=== PATIENT | male | born 1980 | race Asian ===

== ENCOUNTER 2020-01-24 07:31 | Inpatient (IN) | payer OTHER ==
--- NOTE | 2020-01-23 23:00 | NUR ---
PT DENIES PAIN OR SOB AT THIS TIME, PT IS SEEN AMBULATING 50 FEET AND RETURNED TO BED.
[~2020-01-24] VITALS: Ht 167.6 cm; Wt 120.7 kg
[2020-01-24 07:34] VITALS: Ht 167.6 cm; Wt 120.7 kg
--- NOTE | 2020-01-24 07:45 | NUR ---
PT BIBA C CC: URINARY SYMPTOMS X1 WEEK AND LOWER ABD PAIN. PT IS A/O X4. RESP E/U. PT STATES HE STARTED CIPRO 1 DAY AGO WHEN HE WENT TO URGENT CARE AND DX UTI. PT HAS TEMP OF 103.2. COOLING MEASURES IMPLEMENTED AND DR. RATLIFF AT BEDSIDE FOR MSE. HE ORDERED TORADOL IV FOR TEMP AND STATES KEEP PT NPO. CALL LIGHT IN REACH.
[2020-01-24 08:57] LABS: BASOPHIL % 0.1 % (0-2); PLATELET COUNT 355 x10^3mcL (130-400); RED CELL DISTRIBUTION WIDTH 13.7 % (11.5-14.5)
[2020-01-24 08:58] LABS: UA SPECIFIC GRAVITY >=1.030 (1.005-1.035); microscopic required? YES; urine erythrocyte NEGATIVE (NEGATIVE)
[2020-01-24 09:02] LABS: CALCIUM 9.3 mg/dL (8.5-10.1); CARBON DIOXIDE 26.7 mmol/L (21-32); CHLORIDE SERUM 102 mmol/L (98-107); CREATININE SERUM 0.9 mg/dL (0.7-1.3); GFR1 > 60 mL/min; GLUCOSE SERUM 141 mg/dL (74-106); POTASSIUM SERUM 3.3 mmol/L (3.5-5.1); SODIUM SERUM 139 mmol/L (136-145)
[2020-01-24 09:05] LABS: ALKALINE PHOSPHATASE 101 U/L (46-116); ALT/SGPT 41 U/L (16-63); AST/SGOT 25 U/L (15-37); BILIRUBIN TOTAL 0.46 mg/dL (0.20-1.00); TOTAL PROTEIN, SERUM 7.2 g/dL (6.4-8.2)
[2020-01-24] MEDS ORDERED: AZOR 10-20 MG1 EACH PO (09:06)
[2020-01-24] MEDS ORDERED: TRIGLIDE160 M1 PO (09:07)
[2020-01-24] MEDS ORDERED: AMLODIPINE-OLM1 EAC1 PO (09:07)
[2020-01-24] MEDS ORDERED: TOPROL XL25 MG PO (09:08)
--- NOTE | 2020-01-24 09:08 | NUR ---
PT RESTING IN BED. TEMP HAS GONE DOWN TO 101.0. DR RATLIFF AT BEDSIDE TO INFORM HIM THAT HE WILL BE ADMITTED D/T PERFORATION.
--- NOTE | 2020-01-24 09:57 | NUR ---
GAVE REPORT TO [facility] AT [id number]
[2020-01-24 10:30] VITALS: BP 132/85
--- NOTE | 2020-01-24 10:30 | NUR ---
RECEIVED PT FROM ER VIA WC, ACCOMPANIED BY [employer]ER, DX DIVERTICULITIS, VERBAL, AXOX4, ABLE TO MAKE NEEDS KNOWN, CALM AND COOPERATIVE W/ POC AT THIS TIME, STANDARD PRECAUTION, PERRLA, NO FACIAL DROOP/SLURRED SPEECH, RESP E/U, NO SOB/COUGH, AFIBRIL, RA, 99%, MEDSURG, DENIED PAIN/DISCOMFORT, DENIED CP/PALPITATION, DENIED MELENDEZ/N/V/D, SEE ADMISSION ASSESSMENT, SEE SKIN ASSESSMENT, IV PATENT AND FLUSHED WELL, DRESSING CDI, SKIN C/D/W, PALP PULSES, CAP REFILL < 2S, AMBULATORY, CONTINENT, VOID X 1, PT ORIENTED TO UNIT, BED CONTROL BED ALARM, REMOTE, PHONE, QUESTIONS ASKED AND ANSWERED, NO FURTHER CONCERN NEEDED WHEN ASKED, CHARGE NURSE ALEXEY MADE AWARE, ALL NEEDS ADDRESED, SAFETY PROTOCOL FOLLOWED, CONTINUE TO MONITOR
[2020-01-24 11:08] LABS: CHOLESTEROL/HDL RATIO 3.4; MAGNESIUM 1.8 mg/dL (1.8-2.4)
--- NOTE | 2020-01-24 11:22 | NUR ---
PT SEEN BY SURGEON LANETTE BOTELLO AT THIS TIME, QUESTIONS ASKED AND ANSWERED BY DR BOTELLO, NO FURTHER CONCERN NEEDED WHEN ASKED, PT RESTING IN BED, IN NO APARERNT ACUTE DISTRESS, SAFETY PROTOCOL FOLLOWED, MRSA SWAB NARE DONE AND SENT TO LAB, CONTINUE TO MONITOR
--- NOTE | 2020-01-24 12:45 | NUR ---
PRN MED GIVEN PER MD ORDER FOR TEMP 102.1, TOLERATED WELL, COOLING METHOD APPLIED, TOLERATED WELL, REASSESSED PER PROTOCOL, NOTED 99.8, PT RESTING IN BED IN NO ACUTE DISTRESS, RESP E/U, LUNGS CTAB, IV PATENT AND INFUSING WELL, DRESSING CDI, ALL NEEDS ADDRESED, SAFETY PROTOCOL FOLLOWED, CONTINUE TO MONITOR
[2020-01-24 13:04] VITALS: BP 128/79
--- NOTE | 2020-01-24 15:20 | NUR ---
PT SEEN BY GI SPECIALIST DR FRIAS, NEW ORDER OBTAINED, PT MADE AWARE, NO FURTHER CONCERN NEEDED WHEN ASKED, ALL NEEDS ADDRESED, PT RESTIGN IN BED, IN N ACUTE DISTRESS, CONTINUE TO MONITOR
[2020-01-24 17:01] VITALS: BP 127/85
--- NOTE | 2020-01-24 17:28 | NUR ---
PT RESTING IN BED, IN NO ACUTE DISTRESS, AXOX4, VERBAL, ABLE TO MAKE NEEDS KNOWN, RESP E/U, RA, NO SOB/COUGH, MEDSURG, DENIED PAIN/DISCOMFORT, DENIED MELENDEZ/N/V/D, DENIED CP/PALPITATION, IV PATENT AND INFUSING WELL, DRESSING CDI, SKIN C/D/W, AFIBRIL, AMBUALTORY, CONTINENT, BRP, ALL NEEDS ADDRESED, SAFETY PROTOCOL FOLLOWED, CONTINUE TO MONITOR
--- NOTE | 2020-01-24 19:15 | NUR ---
RECIEVED PT RESTING IN BED WITH NO ACUTE DISTRESS NOTED AT THIS TIME, ASSESSMENT PERFORMED AT THIS TIME, PT IS A/OX4 NO COMPLAINTS OF MELENDEZ OR DIZZINESS AT THIS TIME, SPEAKS CLEAR, ABLE TO MAKE NEEDS KNOWN, PT DENIES CHEST PAIN OR PRESSURE AT THIS TIME, PERIPHERAL PULSES PALPABLE THROUGHOUT, NO EDEMA NOTED AT THIS TIME, LUNG SOUNDS CTA, NO SOB AT THIS TIME, RESPIRATIONS EVEN AND UNLABORED, ON RA, BOWEL SOUNDS ACTIVE, ABD LARGE, DISTENDED. PT IS NPO, PT VOIDS FREE OF BURNING OR IRRITATION, PT DENIES PAIN AT THIS TIME, ALL NEEDS ATTENDED TO AT THIS TIME, SAFETY PRECAUITONS IN PLACE, WILL CONTINUE TO MONITOR
[2020-01-24 21:12] VITALS: BP 122/72
--- NOTE | 2020-01-25 00:30 | NUR ---
PT DENIES PAIN OR SOB AT THIS TIME, RESTING IN BED WITH NO ACUTE DISTRESS NOTED AT THIS TIME, ALL PT NEEDS ATTENDED TO AT THIS TIME, SAFETY PRECAUTIONS IN PLACE, WILL CONITNUE TO MONITOR
[2020-01-25 04:50] VITALS: BP 123/77
--- NOTE | 2020-01-25 05:05 | NUR ---
PT RESTED COMFORTABLY THROUGH THE NIGHT WITH NO ACUTE DISTRESS NOTED THROUGH SHIFT, PT DENIES PAIN OR SOB AT THIS TIME, PT HAD LOW GRADE FEVER THAT WAS TREATED WTIH TYLENOL PO PER PRN ORDER, AND COOLING MEASURES REMAINED IN PLACE, THROUGH NIGHT, PT VSS THROUGH CARE, ALL PT NEEDS ATTENDED TO THROUGH SHIFT, WILL CONTINUE TO MONITOR AND ENDORSE CARE TO ONCOMING SHIFT
[2020-01-25 06:43] LABS: BASOPHIL % 0.2 % (0-2); PLATELET COUNT 317 x10^3mcL (130-400); RED CELL DISTRIBUTION WIDTH 13.7 % (11.5-14.5)
[2020-01-25 07:26] LABS: CALCIUM 8.7 mg/dL (8.5-10.1); CARBON DIOXIDE 25.2 mmol/L (21-32); CHLORIDE SERUM 103 mmol/L (98-107); GFR1 > 60 mL/min; GLUCOSE SERUM 122 mg/dL (74-106); POTASSIUM SERUM 3.1 mmol/L (3.5-5.1); SODIUM SERUM 137 mmol/L (136-145)
--- NOTE | 2020-01-25 07:32 | NUR ---
RECEIVED PATIENT FROM NIGHT NURSE, ALERT AND ORIENTED X4, ABLE TO VERBALZE NEEDS, NO C/O PAIN OR DISCOMFORT, LUNG SOUNDS CLEAR ON RA, O2 SAT 99%, NO SOB NOTED, ABLE TO AMBULATE INDEPENDENTLY, IV TO LAC INFUSING D5NS KCL 20MEQ @ 100ML/HR, NO C/O CHEST PAIN, BOWEL SOUNDS ACTIVE, LAST BM 5/4 LOOSE, SKIN INTACT, PEDAL PULSES STRONG AND EQUAL, NO EDEMA NOTED, CONTINENT OF BLADDER, PATIENT CALM AND COOPERATIV
[2020-01-25 07:47] VITALS: BP 124/78
--- NOTE | 2020-01-25 09:20 | NUR ---
PATIENT C/O 03/31 PAIN IN ABDOMEN, PRN NORCO ADMINISTERED PER ORDER IN EMAR, WILL CONTINUE TO MONITOR
--- NOTE | 2020-01-25 10:22 | NUR ---
REASSESED PATIENTS PAIN LEVEL, PATIENT NOW REPORTS 1/10 PAIN, NO FURTHER INTERVENTIONS NEEDED
--- NOTE | 2020-01-25 11:01 | NUR ---
PATIENT EXAMINED BY , ORDERS OBTAINED TO ADVANCE PATIENTS DIET TO CLEAR LIQUID
[2020-01-25 12:26] VITALS: BP 154/89
[2020-01-25 12:28] VITALS: BP 130/74
--- NOTE | 2020-01-25 13:00 | NUR ---
PATIENT WAS ABLE TO TOLERATE CHICKEN BROTH AND 240ML OF APPLE JUICE WITHOUT ANY C/O PAIN DISCOMFORT OR NAUSEA
--- NOTE | 2020-01-25 14:13 | NUR ---
PATIENTS TEMP 102, TYLENOL 650 PO ADMINISTERED, COOLING MEASURES INITIATED, WILL CONTINUE TO MONITOR
[2020-01-25 16:40] VITALS: BP 129/85
--- NOTE | 2020-01-25 17:30 | NUR ---
PATIENT C/O 03/31 ABDOMINAL PAIN, PO PRN NORCO ADMINISTERED PER EMAR, PATIENT ALSO CURRENTLY HAS TEMP OF 101.4, COLING MEASURES INITIATED, WILL CONTINUE TO MONITOR
--- NOTE | 2020-01-25 17:50 | NUR ---
TEMP CURRENTLY 100.4, PAIN NOW 10/01, WILL CONTINUE TO MONITOR
--- NOTE | 2020-01-25 18:59 | NUR ---
PATIENTS TEMP CURRENTLY 100.2, RESTING COMFORTABLY IN CHAIR, NO C/O PAIN OR DISCOMFORT, WILL ENDORSE CARE TO PM NURSE
--- NOTE | 2020-01-25 19:35 | NUR ---
RECEIVED REPORT FROM DAY SHIFT RN. PT SITTING ON THE CHAIR. AA&O X4. NO SOB NOTED ON ROOM AIR. DENIES CHEST PAIN. NO C/O N/V/ABD PAIN AT THIS TIME. IV TO LAC, PATENT AND INTACT. SAFETY MEASURES IN PLACE. INSTRUCTED PT TO USE THE CALL LIGHT IF ASSISTANCE IS NEEDED.
[2020-01-25 21:04] VITALS: BP 123/79
--- NOTE | 2020-01-25 23:50 | NUR ---
PT C/O 4/10 CRAMPING PAIN TO ABD. NORCO GIVEN.
--- NOTE | 2020-01-26 03:35 | NUR ---
PT RESTING WITH EYES CLOSED. BREATHING EVEN AND UNLABORED. NO FACIAL GRIMACING. CALL LIGHT WITHIN REACH. WILL CONTINUE TO MONITOR.
[2020-01-26 05:43] VITALS: BP 122/75
[2020-01-26 06:28] LABS: CALCIUM 8.9 mg/dL (8.5-10.1); CARBON DIOXIDE 23.8 mmol/L (21-32); CHLORIDE SERUM 103 mmol/L (98-107); CREATININE SERUM 0.9 mg/dL (0.7-1.3); GFR1 > 60 mL/min; GLUCOSE SERUM 107 mg/dL (74-106); POTASSIUM SERUM 3.7 mmol/L (3.5-5.1); SODIUM SERUM 139 mmol/L (136-145)
[2020-01-26 06:35] LABS: BASOPHIL % 0.2 % (0-2); PLATELET COUNT 376 x10^3mcL (130-400); RED CELL DISTRIBUTION WIDTH 13.8 % (11.5-14.5)
--- NOTE | 2020-01-26 07:00 | NUR ---
PT RESTED IN LONG INTERVALS DURING SHIFT. NO SOB ON ROOM AIR. NO C/O N/V/ABD PAIN AT THIS TIME. TYLENOL GIVEN FOR TEMP 100.5. COOLING MEASURES PROVIDED. SAFETY MEASURES MAINTAINED. ALL NEEDS ATTENDED TO. CALL LIGHT WITHIN REACH. WILL ENDORSE CONTINUITY OF CARE TO DAY SHIFT RN.
--- NOTE | 2020-01-26 07:30 | NUR ---
RECIEVED PT FROM PM NURSE. PT IN BED RESTING. PT A&OX4, DENIES PAIN AT THIS TIME. LUNG SOUNDS CTA TAVON ON ROOM AIR. PT CLAIMS TO HAVE HAD BM THIS AM. REPORTS LOOSE STOOL. PT AMBULATORY, CALL LIGHT IN REACH. PT ENCOURAGED TO CALL IF ASSISTANCE IS NEEDED.
--- NOTE | 2020-01-26 08:07 | NUR ---
RECEIVED PATIENT FROM DEMETRIS PLATA. PATIENT OBSERVED RETURNING FROM , STATES HE IS HAVING LOOSE STOOL. SPOKE WITH PLAN OF CARE WITH PATIENT INCLUDING ELEVATED WBCs, IV ANTIBIOTICS, AND ENCOURAGED AMBULATION. PATIENT HAS QUESTIONS ABOUT FEVER AND POSSIBLE INFECTION, WILL WAIT FOR DECK MOLDER PADMINI TO SPEAK WITH HIM. INFORMED DECK MOLDER PADMINI AT NURSES STATION OF CRITICAL LAB WBCs AND SHE ORDERED CONSULT W DR SHERIDAN. CALL LIGHT IN REACH AT THIS TIME.
--- NOTE | 2020-01-26 08:10 | NUR ---
ADMINISTERED MORNING MEDS TO PT. PAUSED KCL INFUSION TO RUN FLAGYL ANTIBIOTCS. PT REPORTS ABDOMINAL PAIN 01/29. NORCO ADMINISTERED, WILL FOLLOW UP. PT SITTING IN CHAIR BY BEDSIDE. CALL LIGHT IN REACH.
[2020-01-26 08:23] VITALS: BP 132/86
--- NOTE | 2020-01-26 10:00 | NUR ---
PT TAKEN TO CT VIA WHEELCHAIR. PT HAD NO QUESTIONS. PT SALINE LOCKED AND STABLE.
--- NOTE | 2020-01-26 10:20 | NUR ---
PT RETURNED FROM CT, PT CONNECTED TO IV FLUIDS. PT RESTING IN BED. CALL LIGHT IN REACH.
--- NOTE | 2020-01-26 11:35 | NUR ---
SPOKE TO DR BOTELLO, PT IS NOW NPO PENDING SURGERY. PRINTED EDUCATION PAMPHLETS FOR PT PRIOR TO PROCEDURE. WILL INFORM PT OF PROCEDURE AND ADDRESS QUESTIONS. PROCEDURAL CHECKLIST AND CONSENT FOR SURGERY PRINTED, WILL OBTAIN CONSENT FROM PT.
[2020-01-26 12:04] VITALS: BP 137/81
--- NOTE | 2020-01-26 12:04 | NUR ---
PT HAD CONCERN ABOUT THE PENDING SURGERY. PTS FAMILY WANTING TO SPEAK TO SURGEON. DR BOTELLO BROUGHT TO BEDSIDE, SPOKE TO PTS FAMILY ON THE PHONE. FAMILY EXPRESSING CONCERNS ABOUT HAVING THE SURGERY AT THIS FACILITY. UPON SPEAKING TO DR BOTELLO, FAMILY AND PT AGREE TO HAVE SURGERY DONE. PT HAS SIGNED THE CONSENT. PTS CONCERNS WERE ADDRESSED. EDUCATED PT ABOUT THE SURGERY AND ABOUT WHAT TO EXPECT AFTER. INFORMED PT ABOUT ACTIVITY, INCISION CARE, AND INCENTIVE SPIROMETRY POST SURGERY. PROVIDED PT CHG WIPES AND INFORMED PT ABOUT PRE PROCEDURE CLEANSING. PT HAS NO FURTHER CONCERNS AT THIS TIME. WILL REINFORCE TEACHING ONCE PT RETURNS.
--- NOTE | 2020-01-26 12:11 | NUR ---
PT TAKEN DOWN TO OR VIA BED. PT STABLE UPON TRANSFER.
--- NOTE | 2020-01-26 15:00 | NUR ---
PT STILL IN OR. PTS FAMILY CALLED TO ASK FOR UPDATE. INFORMED THEM THAT PT WAS STILL IN OR, AND I WILL CALL THEM WHEN HE IS BACK ON THE FLOOR.
--- NOTE | 2020-01-26 19:10 | NUR ---
RECEIVED PT LAYING IN BED WITH HOB ELEVATED. PT IS AAOX4. DENIES MELENDEZ. M/S PT. DENIES CHEST PAIN/CHEST PRESSURE. BREATHING IS EVEN AND UNLABORED ON 2LNC. LUNG SOUNDS CTA. DENIES SOB. ABD IS SOFT, DISTENDED. BS HYPOACTIVE. YOUSSEF IN PLACE DRAINING TO GRAVITY DARK YELLOW URINE. AMBULATORY WITH ASSIST. S/P EX LAP. CASEY AND ABD PAD IN PLACE, CDI. ABD BINDER IN PLACE. DENIES ANY PAIN OR ABD PAIN AT THIS TIME. IV TO LAC PATENT AND INTACT. NO ERYTHEMA NOTED. BED IN LOWEST POSITION. CALL LIGHT WITHIN REACH. WILL CONTINUE TO MONITOR.
[2020-01-26 19:40] VITALS: BP 122/81
--- NOTE | 2020-01-26 20:00 | NUR ---
PT C/O PAIN TO LAC. FLUSHED WITH 10 CC, FLUSHING SLOWLY AND PT C/O PAIN. DC'D. NEW IV TO RH PATENT AND INTACT. NO ERYTHEMA NOTED. PT REQUESTING TO HAVE YOUSSEF REMOVED, STATED IT WAS UNCOMFORTABLE AND HE COULD FEEL IT. URINE NOTED IN YOUSSEF BAG. NO KINKS PRESENT. STATED WILL MAKE DR AWARE. PT VERBALIZES UNDERSTANDING. WILL CONTINUE TO MONITOR.
--- NOTE | 2020-01-26 20:20 | NUR ---
ROUTINE MEDICATIONS ADMINSTERED AND TOLERATED WELL. NO ACUTE DISTRESS NOTED. BREATHING IS EVEN AND UNLABORED ON 2LNC. DENIES SOB. TYLENOL 650 MG ADMINSITERED AT THIS TIME FOR TEMP OF 100.5. COOL COMPRESSESS APPLIED. A/C ON. WILL REASSESS AND CHECK EFFECTIVENESS.
--- NOTE | 2020-01-26 22:22 | NUR ---
PT C/O YOUSSEF, ASKING IF IT CAN BE REMOVED. EDUCATED PT ON REASONS FOR YOUSSEF BEING PLACED. PT VERBALIZES UNDERSTANDING, STATES HE WANTS PAIN MEDICATION FOR IT. MORPHINE AND NORCO ONLY PRESENT FOR MAR, PT STILL DROWSY FROM PROCEDURE. WILL RECOMMEND TO DR IF TORADOL MAY BE ADMINISTERED.
--- NOTE | 2020-01-26 23:31 | NUR ---
ONE TIME DOSE OF TORADOL ADMINISTERED AT THIS TIME. PT C/O [address] EDUCATED PT OF DR NOT WANTING TO D/C CATHETER. PT VERBALIZES UNDERSTANDING. WILL REASSESS AND CHECK EFFECTIVENESS.
--- NOTE | 2020-01-27 01:35 | NUR ---
PT RESTING COMFORTABLY. BREATHING IS EVEN AND UNLABORED ON 2LNC. NO RESP DISTRESS NOTED. DENIES ANY PAIN AT THIS TIME. WILL CONTINUE TO MONITOR.
--- NOTE | 2020-01-27 04:18 | NUR ---
PT RESTING COMFORTABLY. BREATHING IS EVEN AND UNLABORED ON 2LNC. NO RESP DISTRESS NOTED. WILL CONTINUE TO MONITOR.
[2020-01-27 05:38] VITALS: BP 122/73
[2020-01-27 06:29] LABS: BASOPHIL % 0.1 % (0-2)
[2020-01-27 06:53] LABS: CALCIUM 8.4 mg/dL (8.5-10.1); CARBON DIOXIDE 25.1 mmol/L (21-32); CHLORIDE SERUM 105 mmol/L (98-107); CREATININE SERUM 0.6 mg/dL (0.7-1.3); GFR1 > 60 mL/min; GLUCOSE SERUM 146 mg/dL (74-106); POTASSIUM SERUM 3.8 mmol/L (3.5-5.1); SODIUM SERUM 139 mmol/L (136-145)
--- NOTE | 2020-01-27 06:55 | NUR ---
COMFORT AND SAFETY MEASURES MAINTAINED. ALL NEEDS ASSESSED AND ATTENDED TO. WILL CONTINUE TO MONITOR AND ENDORSE CARE TO DAY SHIFT NURSE.
[2020-01-27 07:06] LABS: PLATELET COUNT 436 x10^3mcL (130-400)
--- NOTE | 2020-01-27 07:28 | NUR ---
RECEIVED PATIENT FROM DEMETRIS HENLEY. PATIENT IN BED AT THIS TIME, COMPLAINING ABOUT PRODUCTIVE COUGH, AND YOUSSEF CATHETER DISCOMFORT. DEMETRIS HENLEY STATES SHE SPOKE WITH DR BOTELLO ABOUT YOUSSEF CATHETER REMOVAL BUT ONLY IF PATIENT IS MORE AWAKE AND ALERT. PATIENT IS MORE AWAKE AND ALERT AT THIS TIME AND WILL LIKELY REMOVED YOUSSEF TODAY. INCENTIVE SPIROMETER ALSO GIVEN TO PATIENT WHO IS FAMILIAR WITH DEVICE. WILL REINFORCE TEACHER ON IS USE TODAY. LAB CALLED WITH ELEVATED WBCs AT THIS TIME, WILL INFORM LINEN ROOM ATTENDANT PADMINI.
[2020-01-27 08:03] VITALS: BP 113/71
--- NOTE | 2020-01-27 08:12 | NUR ---
SPORTS ADMINISTRATOR PADMINI IN TO SEE PATIENT, AWARE OF INCREASED WBC COUNT. STATES PATIENT WILL NEED TO HAVE INFECTION IN CONTROL AND ENCOURAGED USE OF INCENTIVE SPIROMETER AND AMBULATION. PATIENT AGREES. DR BOTELLO ALSO IN, WILL WAIT FOR HER TO COME SEE PATIENT. CALL LIGHT IN REACH.
--- NOTE | 2020-01-27 08:54 | NUR ---
DR BOTELLO IN TO SEE PATIENT AND EVAL. ENCOURAGE USE OF AMBULATION AND IS USAGE. INSTRUCTED PATIENT ON IS USAGE AND STEPS, PATIENT VERBALIZES UNDERSTANDING AND WILL CONTINUE TO MONITOR. YOUSSEF CATHETER REMOVED AT THIS TIME, PATIENT TOLERATED. 250 ML RAJAT URINE NOTED.
[2020-01-27 12:47] VITALS: BP 106/73
--- NOTE | 2020-01-27 13:02 | NUR ---
PATIENT CONTINUES TO CRY AND STATES "HER HEART HURTS". ATTEMPTED TO CALM PATIENT DOWN WITH BREATHING TECHNIQUES AND DISTRACTION. PATIENT STATES SHE WANTS STAFF TO CALL [facility] AND PCP DR WALKER STATING THAT SHE "WANTS TO GO TO HOSPICE". EXPLAINED TO PATIENT THAT SHE IS STILL CLEARED MEDICALLY AND THAT THERE IS NO NEED TO GO TO HOSPICE AND THAT SHE WILL LIKELY NOT QUALIFY. PATIENT STATES "ITS ALL GOING DOWN HILL" AND IS SOBBING. [facility] DIALED AND NO ANSWER, VM LEFT. WILL WAIT FOR RETURN CALL.
--- NOTE | 2020-01-27 15:34 | NUR ---
Initial Nutrition Assessment: 207A KIKE CHOWDHURY 39M HR IA Dx: Diverticulitis, Pneumoperitoneum PMHx: HTN, Hyperlipidemia PSHx: none noted Labs: (01/26) Glu 146H, Cr 0.6L, Ca 8.4L, WBC 16.8H, H/H 11.6/35L Meds: Colace, D5-1/2NS/KCL IV, flagyl, Levaquin, Lipitor, Norvasc, toPROL PRN meds: morphine, Chazy, Tylenol, Zofran Diet: NPO d/t post-surgery PO intake since admission: Ht: 167.64cm/66in Wt: 120.656kg/265lbs BMI: 42.9 Bed scale: pt was not in bed IBW: 64.55kg/142lbs %IBW: 186.93% ABW: 79kg UBW: 215-218lbs per pt Age: 39 Food Allergies: NKFA Edema: none noted Last BM: 01/25 Skin: not intact, s/p ex lap with abhijit and abd pad, abd binder in place Harry: 22 Per H and P (), 39-year-old male with PMH HTN, Hyperlipidemia. Patient came in with c/o right lower quadrant pain for 1 week constant. He has had fevers as well along with loss of appetite. He has nausea vomiting only once after taking ibuprofen today. He feels constipated. He feels weak and dizzy. He went to urgent care yesterday but did not physically see him. They gave him ciprofloxacin. He denies any GI bleed symptoms, urinary symptoms, chest pain, shortness of breath, cough, sore throat, ill contacts or travel. Pt was admitted with dx: pneumoperitoneum with perforated viscus 2/2 diverticulitis/colitis, poss appendicitis, hypokalemia, h/o HTN, h/o hyperlipidemia, DVT RD Note (01/26): Per progress note (01/26), pt has raptured sigmoid diverticulitis s/p exploratory lap low anterior resection sigmoidoscopy w/ william drain, sepsis. Pt was sitting on chair during bedside visit. Per pt, he did not have any GI distress, but he was trying to pass gas. Pt also denied chewing/swallowing difficulties and recent wt changes. Pt stated that his usual body weight was approximately 215-218lbs but not sure how long ago. Pt was talking zinc and vitamin D supplements for COVID-19 prevention per his friend's recommendation. Problem with: N/V/D/C: None except pt is trying pass gas right now Problems with: Chewing: Swallowing: no per pt Current appetite: pt is currently NPO Recent wt change: no per pt %wt change: 23% wt gain per usual weight provided by pt Height: 5"6" Vitamin/Supplement use: Zinc and vitamin D Special diet at home: None per pt Physical activity: none per pt Nutrition education given (specify specific nutrition education and handout given): Encouraged pt to lower fiber intake during recovery d/t fiber is harder to digest and provides more volume to stool. Recommend pt to slowly introduce fiber into his diet. Additionally, encouraged pt to be mindful for his sodium intake and food items that are high in sodium d/t his h/o HTN. Written educations on fiber content of food and low sodium nutrition therapy were provided to pt, and pt acknowledged. Food-drug interactions? Education given? n/a Estimated Nutritional Needs Based on adjusted body weight (79kg) Energy: 2183-6118 kcal/day (20-22 kcal/kg for weight reduction) Protein: 79-94 g/day (1-1.2 g/kg for post-op) Fluid: 0414-3906 mL/day (25-30 mL/kg) Nutrition Diagnosis: 1. Altered GI function r/t pathophysiological cause a/e/b pt admitted with raptured diverticulitis s/p ex lap low anterior resection sigmoidoscopy and pt trying to pass gas. 2. Class III obesity r/t imbalance intake and output a/e/b pt BMI >40 (BMI = 42.9) and pt reported no physical activity. Intervention 1. Recommend continue NPO as necessary 2. Recommend clear liquid diet when pt is ready to receive nutrition. 3. Recommend full liquid diet then NA2G diet when it is appropriate to advance diet Monitor/Evaluate Goal: PO intake at least 75% of estimated needs Monitor: PO intake, Labs, GI function, Body weight F/U in 3-5 days as moderate risk 01/29-
[2020-01-27 16:48] VITALS: BP 124/81
--- NOTE | 2020-01-27 17:51 | NUR ---
PATIENT OBSERVED AMBULATING WITHOUT ASSISTANCE DOWN HALLWAY. DENIES PAIN. PATIENT ALSO STATES HE WAS ABLE TO HAVE SMALL BOWEL MOVEMENT TODAY. DRESSINGS INTACT AT THIS TIME AND DENIES STRAINING. WILL ENDORSE TO ONCOMING NURSE. CALL LIGHT IN REACH.
--- NOTE | 2020-01-27 19:10 | NUR ---
RECEIVED PT SITTING UP AT CHAIR. PT IS AAOX4. SPEECH IS CLEAR. DENIES MELENDEZ. M/S PT. DENIES CHEST PAIN/CHEST PRESSURE. BREATHING IS EVEN AND UNLABORED ON RA. NO RESP DISTRESS NOTED. INSTRUCTED PT TO USE IS, PT VERBALIZES UNDERSTANDING AND DEMONSTRATES USE. ABD IS SOFT AND DISTENDED. BS ACTIVE. SEPIDEH DRAIN TO RLQ DRAINING SEROSANGUINEOUS DRAINAGE. VOIDS FREELY. SURGICAL ABD INCISION WITH CASEY AND ABD PAD, CDI. ABD BINDER APPLIED. DENIES ANY PAIN OR ABD PAIN AT THIS TIME. IV TO RH PATENT AND INTACT. NO ERYTHEMA NOTED. BED IN LOWEST POSITION. CALL LIGHT WITHIN REACH. WILL CONTINUE TO MONITOR.
[2020-01-27 19:52] VITALS: BP 121/73
--- NOTE | 2020-01-27 20:30 | NUR ---
IV TO RH INFILTRATED. DC'D, CATHETER INTACT. IV TO RFA (20G) INSERTED. PATENT AND INTACT. NO ERYTHEMA NOTED. RUNNING FLAGYL AT 100 CC/HR.
--- NOTE | 2020-01-27 20:32 | NUR ---
ROUTINE MEDICATIONS ADMINISTERED. NO ACUTE DISTRESS NOTED. NORCO ADMINISTERED FOR 6/10 ABD PAIN. WILL REASSESS AND CHECK EFFECTIVENESS. BREATHING IS EVEN AND UNLABORED ON RA. NO RESP DISTRESS. WILL CONTINUE TO MONITOR.
--- NOTE | 2020-01-27 22:31 | NUR ---
PT SEEN AMBULATING UP AND DOWN THE HALLWAY. NO ACUTE DISTRESS NOTED.
--- NOTE | 2020-01-27 23:47 | NUR ---
PT C/O FEELING FEVERISH. ORAL TEMPERATURE TAKEN, 100.4. TYLENOL 650 MG ADMINISTERED AT THIS TIME. COOLING MEASURES APPLIED. WILL REASSESS AND CHECK EFFECTIVENESS. BREATHING IS EVEN AND UNLABORED ON RA. NO RESP DISTRESS. DENIES PAIN. WILL CONTINUE TO MONITOR
--- NOTE | 2020-01-28 01:47 | NUR ---
PT RESTING COMFORTABLY. BREATHING IS EVEN AND UNLABORED ON RA. NO RESP DISTRESS. WILL CONTINUE TO MONITOR.
--- NOTE | 2020-01-28 05:27 | NUR ---
PT RESTING COMFORTABLY. BREATHING IS EVEN AND UNLABORED ON RA. NO RESP DISTRESS. PT C/O 03/01 ABD PAIN. WILL MEDICATED ACCORDINGLY PER NOV ORDER. COMFORT AND SAFETY MEASURSES MAINTAINED. ALL NEEDS ASSESSED AND ATTENDED TO. WILL CONTINUE TO MONITOR AND ENDORSE CARE TO DAY SHIFT NURSE.
[2020-01-28 05:34] VITALS: BP 115/86
[2020-01-28 06:55] LABS: CALCIUM 8.2 mg/dL (8.5-10.1); CARBON DIOXIDE 24.7 mmol/L (21-32); CHLORIDE SERUM 105 mmol/L (98-107); CREATININE SERUM 0.9 mg/dL (0.7-1.3); GFR1 > 60 mL/min; GLUCOSE SERUM 91 mg/dL (74-106); POTASSIUM SERUM 3.3 mmol/L (3.5-5.1); SODIUM SERUM 142 mmol/L (136-145)
--- NOTE | 2020-01-28 07:10 | NUR ---
RECIEVED PT SITTING UP IN BED WITH NO C/O PAIN OR DISTRESS. A/OX4 WITYH NO MELENDEZ OR DIZZINESS. LUNGS CTAB, NO SOB NOTED. RLQ SEPIDEH DRAIN IN PLACE, NO DRAINIAGE AT THIS TIME. SURGICAL ABD INCISION WITH CASEY, ABD PAD, AND ABD BINDER IN PLACE, DRESSING CDI AND NO PAIN REPORTED. D5-1/2NS-[id number] RUNNING AT 100ML/HR IN RFA, CDI AND PATENT. SAFETY PRECAUTIONS IN PLACE, CALL LIGHT WITHIN REACH, WILL MONITOR.
[2020-01-28 08:25] VITALS: BP 135/92
--- NOTE | 2020-01-28 09:13 | NUR ---
NORCO GIVEN PER EMAR FOR C/O 5/10 ABD PAIN, WILL REASSESS.
[2020-01-28 09:29] LABS: PLATELET COUNT 475 x10^3mcL (130-400); RED CELL DISTRIBUTION WIDTH 14.1 % (11.5-14.5)
[2020-01-28 09:33] LABS: ATYPICAL LYMPH 1 %; BAND NEUTROPHIL 1 % (0-10); BASOPHIL 0 % (0-2); MONOCYTE 14 % (0-7); SEGMENTED NEUTROPHILS 62 % (37-75)
[2020-01-28 09:35] LABS: rbc morphology (normal/abnorm) ABNORMAL (NORMAL)
[2020-01-28 09:36] LABS: PLATELET MORPHOLOGY I
[2020-01-28 12:39] VITALS: BP 121/70
--- NOTE | 2020-01-28 15:52 | NUR ---
NORCO GIVEN PER EMAR FOR C/O 03/31 ABD PAIN, WILL REASSESS.
[2020-01-28 16:42] VITALS: BP 127/87
--- NOTE | 2020-01-28 18:10 | NUR ---
PT RESTING IN BED WITH NO C/O PAIN OR DISTRESS. A/OX4 WITH NO MELENDEZ OR DIZZINESS. LUNGS CTAB, NO SOB NOTED. RLQ SEPIDEH DRAIN IN PLACE, 20ML OF DARK YELLOW DRAINAGE FROM ALL SHIFT. SURGICAL ABD INCISION WITH CASEY, ABD PAD, AND ABD BINDER IN PLACE, DRESSING CDI AND NO PAIN REPORTED. RFA IV CDI AND PATENT. SAFETY PRECAUTIONS IN PLACE, CALL LIGHT WITHIN REACH, WILL ENDORSE TO NIGHT NURSE.
--- NOTE | 2020-01-28 19:30 | NUR ---
RECEIVED REPORT FROM DAY SHIFT RN. PT SITTING ON THE CHAIR. AA&O X4. BREATHING EVEN AND UNLABORED. NO C/O CHEST PAIN. NO C/O N/V/ABD PAIN AT THIS TIME. ABD SURGICAL INCISION COVERED WITH ABD PAD, C/D/I. ABD BINDER IN PLACE. SEPIDEH DRAIN TO RLQ, NO DRAINAGE. IV TO RFA, PATENT AND INTACT. SAFETY MEASURES IN PLACE. INSTRUCTED PT TO USE THE CALL LIGHT FOR ASSISTANCE. CALL LIGHT WITHIN REACH.
[2020-01-28 20:05] VITALS: BP 126/86
--- NOTE | 2020-01-28 23:32 | NUR ---
PT C/O ABD PAIN. MEDICATED WITH NORCO.
--- NOTE | 2020-01-29 01:00 | NUR ---
PT RESTING WITH EYES CLOSED. NO FACIAL GRIMACING. NO DISTRESS NOTED. CALL LIGHT WITHIN REACH. WILL CONTINUE TO MONITOR.
[2020-01-29 06:05] VITALS: BP 126/89
--- NOTE | 2020-01-29 06:30 | NUR ---
PT WATCHING TV AT THIS TIME. NO SOB ON ROOM AIR. PT DENIES PAIN. PT STATES PAIN MEDICATION EFFECTIVE. NO C/O N/V. NO DISTRESS NOTED. SAFETY MEASURES MAINTAINED. CALL LIGHT WITHIN REACH. WILL ENDORSE CONTINUITY OF CARE TO DAY SHIFT RN.
--- NOTE | 2020-01-29 07:00 | NUR ---
RECIEVED PT SITTING UP IN BED WITH NO C/O PAIN OR DISTRESS. A/OX4 WITH NO MELENDEZ OR DIZZINESS. LUNGS CTAB, NO SOB NOTED. RLQ SEPIDEH DRAIN IN PLACE, NO DRAINIAGE AT THIS TIME. SURGICAL ABD INCISION WITH CASEY, ABD PAD, AND ABD BINDER IN PLACE, DRESSING CDI AND NO PAIN REPORTED. RFA IV CDI AND PATENT. SAFETY PRECAUTIONS IN PLACE, CALL LIGHT WITHIN REACH, WILL MONITOR.
[2020-01-29 07:01] LABS: CALCIUM 8.2 mg/dL (8.5-10.1); CHLORIDE SERUM 104 mmol/L (98-107); CREATININE SERUM 0.8 mg/dL (0.7-1.3); GFR1 > 60 mL/min; GLUCOSE SERUM 96 mg/dL (74-106); POTASSIUM SERUM 3.6 mmol/L (3.5-5.1); SODIUM SERUM 140 mmol/L (136-145)
[2020-01-29 08:07] LABS: RED CELL DISTRIBUTION WIDTH 14.2 % (11.5-14.5)
[2020-01-29 08:13] LABS: PLATELET COUNT 516 x10^3mcL (130-400)
[2020-01-29 08:27] VITALS: BP 126/93
--- NOTE | 2020-01-29 08:32 | NUR ---
TYLEMOL GIVEN PER EMAR FOR C/O 11/29 ABD PAIN, WILL REASSESS.
--- NOTE | 2020-01-29 08:55 | NUR ---
DR FRIAS MADE AWARE OF WBC COUNT OF 15.5, NO NEW ORDERS AT THIS TIME.
[2020-01-29 09:06] LABS: MONOCYTE 34 % (0-7); SEGMENTED NEUTROPHILS 59 % (37-75)
[2020-01-29 09:07] LABS: PLATELET MORPHOLOGY PLATELETS INCREASED; rbc morphology (normal/abnorm) ABNORMAL (NORMAL)
[2020-01-29 13:03] VITALS: BP 138/87
--- NOTE | 2020-01-29 13:54 | NUR ---
TYLENOL GIVEN FOR C/O 4/10 ABD PAIN, WILL REASSESS.
[2020-01-29 17:11] VITALS: BP 123/84
--- NOTE | 2020-01-29 17:50 | NUR ---
DR ILEANA VAZQEUZ AST BEDSIDE WITH PT DISCUSSING POC AND ASSESSING INCISION SITE. SITE CLEAR OF S/S OF INFECTION PER DR VAZQUEZ. DRESSING CHANGED AND CDI.
--- NOTE | 2020-01-29 18:30 | NUR ---
PT RESTING IN BED WITH NO C/O PAIN OR DISTRESS. A/OX4 WITH NO MELENDEZ OR DIZZINESS. LUNGS CTAB, NO SOB NOTED. RLQ SEPIDEH DRAIN IN PLACE, 10ML YELLOW DRAINAGE ALL SHIFT. SURGICAL ABD INCISION WITH CASEY, ABD PAD, AND ABD BINDER IN PLACE, DRESSING CHANGED TODAY AND CDI. NO PAIN REPORTED. RFA IV CDI AND PATENT. SAFETY PRECAUTIONS IN PLACE, CALL LIGHT WITHIN REACH, WILL ENDORSE CARE TO NIGHT NURSE.
--- NOTE | 2020-01-29 19:40 | NUR ---
RECIEVED PT FROM DAYSHIFT NURSE. PT IS A/OX4, DENIES HEADACHES/DIZZINESS/NAUSEA. PT IS MED SURG PT, DENIES CHEST PAIN, HR 87. PT HAS BILATERAL EQUAL PULSES, NO EDEMA NOTED, SCDS IN PLACE. CTA, ON RA, SPO2 99%. PT HAS ACTIVE BOWEL MOVEMENTS, IS ABLE TO AMBULATE TO RESTROOM WITHOUT ASSISTANCE. PT DESCRIBES LAST BM HAS SMALL AND HARD WITH SOME BLOOD TINGED. SEPIDEH IN PLACE, NO DRAIANGE FOR NOC SHIFT YET. PT HAS GENERALIZED WEAKNESS, BUT IS NOW ABLE TO AMBULATE SELF WITOHOUT ASSISTANCE. PT HAD ABDOMINAL SURGICAL INCISION IN PLACE. INCISION HAS CASEY/ABDOMINAL PAD AND ABOMDINAL BINDER WITH SEPIDEH DRAIN. SITE IS CDI. PT HAD ABDOMINAL PAIN PER DAYSHIFT, WILL CONTINUE TO MONITOR AND PROVIDE PT WITH COMFORT CARE AND MEDICATIONS PRN NEEDED FOR PAIN. IV IS ON RFA, 2O GAUGE. PT IS CALM AND COOPERATIVE. ALL COMFORT CARE ACCOUNTED FOR. BED IN LOWEST POSITION, CALL LIGHT WITHIN REACH. WILL CONTINUE TO MONITOR.
[2020-01-29 20:40] VITALS: BP 125/83
--- NOTE | 2020-01-29 22:02 | NUR ---
PT C/O ABD CRAMPING PAIN 11/01. TYLENOL GIVEN.
--- NOTE | 2020-01-30 01:45 | NUR ---
OBSERVED PT RESTING IN BED WITH EYES CLOSED COMFORTABLY. NO S/S OF CONTINUING ABDOMINAL PAIN AT THE MOMENT. WILL CONTINUE TO MONITOR PT'S PROGRESS. BED IN LOWEST POSITION, CALL LIGHT WTHIN REACH.
[2020-01-30 05:28] VITALS: BP 128/88
--- NOTE | 2020-01-30 05:58 | NUR ---
PT RESTED ON AND OFF THROUGHOUT THE NIGHT WITH EYES CLOSED. PT CONTINUES TO BE A/OX4, MED SURG PT. PT DENIES CHEST PAIN OR SOB. PULSES ARE BILATERALLY EQUAL, SCDS IN PLACE. PT IS CTA, ON RA. PT DID NOT HAVE AN ACTIVE BOWEL MOVEMENT THROUGHT NOC. PT CONTINUES TO HAVE GENERALIZED WEAKNESS, BUT IS ABLE TO AMBULATE SELF TO RR. PT HAS ABDOMINAL SURGICAL INCISION WITH CASEY/ABDOMINAL PAD IN PLACE WITH ABDOMINAL BINDER. SEPIDEH DRAIN HAD SEROUS DRAINAGE OF 10ML. PT WAS GIVEN TYLENOL PRN FOR ABDOMINAL PAIN. PT'S IV REMAINS IN RFA, 20G. IV SITE IS PATENT/NO REDNESS/NO DRAINAGE. PT IS CALM AND COOPERATIVE. ALL COMFORT CARE ACCOUNTED FOR, BED IN LOWEST POSITION, CALL LIGHT WITHIN REACH. WILL CONTINUE TO MONITOR.
[2020-01-30 06:51] LABS: CALCIUM 8.6 mg/dL (8.5-10.1); CARBON DIOXIDE 28.9 mmol/L (21-32); CHLORIDE SERUM 102 mmol/L (98-107); CREATININE SERUM 0.7 mg/dL (0.7-1.3); GFR1 > 60 mL/min; GLUCOSE SERUM 99 mg/dL (74-106); POTASSIUM SERUM 3.6 mmol/L (3.5-5.1); SODIUM SERUM 139 mmol/L (136-145)
--- NOTE | 2020-01-30 07:05 | NUR ---
RECIEVED PT RESTING IN BED WITH NO C/O PAIN OR DISTRESS. A/OX4 WITH NO MELENDEZ OR DIZZINESS. LUNGS CTAB, NO SOB NOTED. RLQ SEPIDEH DRAIN IN PLACE, NO DRAINAGE AT THIS TIME. SURGICAL ABD INCISION WITH CASEY, ABD PAD, AND ABD BINDER IN PLACE, DRESSING CHANGED YESTERDAY AND CDI. RFA IV CDI AND PATENT. SAFETY PRECAUTIONS IN PLACE, CALL LIGHT WITHIN REACH, WILL MONITOR. .
--- NOTE | 2020-01-30 07:21 | NUR ---
ENDORSED PT CARE TO DAYSHIFT NURSE, PT IN BED RESTING WITH EYES CLOSED. ALL QUESTIONS AND CONCERNS ADDRESSED.
[2020-01-30 08:18] LABS: PLATELET COUNT 654 x10^3mcL (130-400)
--- NOTE | 2020-01-30 08:33 | NUR ---
TYLENOL GIVEN FOR C/O 4/10 ABD PAIN, WILL REASSESS. CORY ELECTRONIC GLUING MACHINE OPERATOR MADE AWARE OF WBC LEVEL OF 16.7, WILL CARRY OUT ANY NEW ORDERS.
[2020-01-30 09:16] VITALS: BP 123/82
--- NOTE | 2020-01-30 09:58 | NUR ---
DR BOTELLO AT BEDSIDE ASSESSING INCISION SITE AND DISCUSSING POC WITH PT, PT VERBALIZES UNDERSTANDING.
[2020-01-30 11:00] LABS: BAND NEUTROPHIL 0 % (0-10); BASOPHIL 0 % (0-2); MONOCYTE 15 % (0-7); SEGMENTED NEUTROPHILS 76 % (37-75)
[2020-01-30 11:01] LABS: PLATELET MORPHOLOGY PLATELETS INCREASED; rbc morphology (normal/abnorm) ABNORMAL (NORMAL)
[2020-01-30 16:22] VITALS: BP 119/84
--- NOTE | 2020-01-30 18:09 | NUR ---
PT RESTING IN BED WITH NO C/O PAIN OR DISTRESS. A/OX4 WITH NO MELENDEZ OR DIZZINESS. LUNGS CTAB, NO SOB NOTED. RLQ SEPIDEH DRAIN IN PLACE, 10ML YELLOW DRAINAGE ALL SHIFT. SURGICAL ABD INCISION WITH CASEY, ABD PAD, AND ABD BINDER IN PLACE, SITE CDI AND NO PAIN REPORTED. RFA IV CDI AND PATENT. SAFETY PRECAUTIONS IN PLACE, CALL LIGHT WITHIN REACH, WILL ENDORSE CARE TO NIGHT NURSE.
[2020-01-30 20:32] VITALS: BP 125/75
--- NOTE | 2020-01-31 01:28 | NUR ---
RECIEVED PT FROM DAYSHIFT NURSE. PT IS A/OX4. PT IS MED SURG PATIENT, DENIES CHEST PAIN AT THE TIME, HR 98. PT HAS EQUAL BILATERAL PULSES, NO EDEMA NOTED, SCDS IN PLACE. PT IS CTA, ON RA, SPO2 96%, DENIES SOB. PT HAS ACTIVE BOWEL SOUNDS, LAST BOWEL MOVEMENT DURING DAYSHIFT ON 01/29 DESCRIBED SMALL, SOFT BROWN. ABDOMINAL IS SOFT AND DISTENDED, SEPIDEH SITE CDI. PT COMPLAINS OF GENERALIZED WEAKNESS, IS ABLE TO AMBULATE TO RESTROOM AND REPOSITION SELF IN BED. ABDOMINAL SURGICAL INCISION IS WITH CASEY, ABDOMINAL PAD, AND ABDOMINAL BINDER, DRESSING IS CDI. PT DENIES ABDOMINAL PAIN AT THIS TIME. IV IS RFA 2OG, IV SITE IS PATENT, NO REDNESS/SWELLING NOTED. PT IS CALM AND COOPERATIVE. ALL COMFORT CARE IS ACCOUNTED FOR. BED IN LOWEST POSITION, CALL LIGHT WITHIN REACH, WILL CONTINUE TO MONITOR.
--- NOTE | 2020-01-31 01:50 | NUR ---
STARTED NEW IV ON PATIENT, THOMPSON 22G. REMOVED PREVIOUS IV. NEW IV SITE IS PATENT, NO REDNESS OR SWELLING NOTED. BED IN LOWEST POSITION, CALL LIGHT WITHIN REACH. WILL CONTINUE TO MONITOR.
--- NOTE | 2020-01-31 02:05 | NUR ---
PT COMPLAINED OF MILD ABDOMINAL PAIN, REQUESTED PAIN MEDICATON. WILL MEDICATE PATIENT WITH TYLENOL PRN. EDUCATED PT ON POTENTIAL SIDE EFFECTS OF MEDICATION, PT VERBALIZED UNDERSTANDING. BED IN LOWEST POSITION, CALL LIGHT WITHIN REACH. WILL CONTINUE TO MONITOR.
[2020-01-31 05:20] VITALS: BP 115/80
--- NOTE | 2020-01-31 06:49 | NUR ---
PT RESTED ON AND OFF THROUGHOUT THE NIGHT WITH EYES CLOSED. PT REMAINS IN FULL LIQUID DIET AND A/OX4. PT DENIES ANY CHEST PAIN/SOB. THROUGHOUT THE NIGHT SEPIDEH DRAINAGE WAS 15ML SEROUS DRAINAGE. PT COMPLAINED ONE NIGHT OF ABDOMINAL PAIN AND WAS GIVEN TYLENOL FOR MILD PAIN. PT STATED THAT TYLENOL ALLEVIATED PAIN. PT ALSO REMOVED ABDOMINAL DRESSING IN THE RESTROOM WHILE CHANGING, CALLED NURSING STATION AND I WAS ABLE TO CHANGE THE DRESSING. DRESSING IS CDI. ABDOMINAL BINDING IN PLACE. PT HAS A NEW IV IN THE RFA 22G, IV SITE IS PATENT. NO SWELLING OR REDNESS NOTED. ALL COMFORT CARE HAS BEEN ADDRESSED AND PROVIDED FOR THROUGHOUT THE SHIFT. WILL ENDORSE CARE TO DAYSHIFT NURSE.
[2020-01-31 07:19] LABS: CALCIUM 8.7 mg/dL (8.5-10.1); CARBON DIOXIDE 28.5 mmol/L (21-32); CHLORIDE SERUM 103 mmol/L (98-107); CREATININE SERUM 0.9 mg/dL (0.7-1.3); GFR1 > 60 mL/min; GLUCOSE SERUM 96 mg/dL (74-106); POTASSIUM SERUM 3.5 mmol/L (3.5-5.1); SODIUM SERUM 139 mmol/L (136-145)
--- NOTE | 2020-01-31 07:30 | NUR ---
PT IS AAOX4. MED SURG PT. LUNG SOUNDS CTA. ON R/A. NO COUGH OR SOB. PT HAS ABDOMINAL INCISION CLOSED WITH SUTURES AND CASEY, COVERED WITH CDI DRESSING AND ABDOMINAL BINDER. IV CATH TO RFA FLUSHED AND PATENT. SITE WNL. COVERED WITH CDI OCCLUSIVE DRESSING. PT DENIES PAIN AT THIS TIME. CALL LIGHT WITHIN REACH.
[2020-01-31 09:06] VITALS: BP 118/79
[2020-01-31 09:52] LABS: RED CELL DISTRIBUTION WIDTH 14.1 % (11.5-14.5)
[2020-01-31 09:53] LABS: PLATELET COUNT 630 x10^3mcL (130-400)
--- NOTE | 2020-01-31 10:12 | NUR ---
IV CATH TO RFA FELL OUT INTACT. SITE WNL. COVERED WITH CDI DRESSING. NEW IV CATH 20G PLACED ON FIRST ATTEMPT. SITE WNL. COVERED WITH CDI OCCLUSIVE DRESSING. PT TOLERATED PROCEDURE WELL. BED IN LOWEST POSITION. CALL LIGHT WITHIN REACH.
--- NOTE | 2020-01-31 10:12 | NUR ---
PADMINI ROLON NP COMPLETED PT'S DISABILITY PAPERS AND RETURNED THEM TO THE PT AT THIS TIME.
--- NOTE | 2020-01-31 10:29 | NUR ---
DR. BOTELLO MET WITH PT. PT HAS SMALL POCKET OF INFECTION, CT WITH CONTRAST ORDERED TO EVALUATE. PT MAY NEED SMALL DRAIN PLACED TO THE AREA TO DRAIN INFECTION. DR. BOTELLO WILL ASSESS CT RESULTS TODAY.
--- NOTE | 2020-01-31 10:32 | NUR ---
SPOKE WITH ALEIDA IN RADIALOGY AND REPORTED THAT DR. BOTELLO WOULD LIKE THE CT WITH CONTRAST HELD UNTIL SHE TALKED TO THE RADIOLOGIST. ALEIDA STATED SHE WILL LET THE TECH KNOW.
[2020-01-31 13:00] LABS: BAND NEUTROPHIL 17 % (0-10); BASOPHIL 0 % (0-2); METAMYELOCTE 6 % (0-2); MONOCYTE 9 % (0-7); MYELOCYTE 2 % (0-2); SEGMENTED NEUTROPHILS 50 % (37-75)
[2020-01-31 13:02] LABS: rbc morphology (normal/abnorm) ABNORMAL (NORMAL); tear drop cell (dacryocyte) 1+
--- NOTE | 2020-01-31 13:40 | NUR ---
PT RECEIVING U/S GUIDED ABCESS DRAIN AT THIS TIME.
[2020-01-31 14:06] VITALS: BP 129/87
--- NOTE | 2020-01-31 14:06 | NUR ---
U/S GUIDED ABCESS DRAIN TO LLQ COMPLETED. AREA COVERED WITH CDI BANDAID. 10CC SEROUS FLUID REMOVED AND TAKEN TO LAB FOR CULTURE. PT TOLERATED PROCEDURE WELL WITH NO C/O PAIN. VS; 97.8, 89, 16, 129/82 (97) , 97% ON R/A. BED IN LOWEST POSITION. CALL LIGHT WITHIN REACH. WILL CONTINUE TO MONITOR.
--- NOTE | 2020-01-31 15:04 | NUR ---
FLAGYL IV INTIATED. WOUND CARE PREFORMED. ABOMINAL DRESSING FALLING OFF. REMOVED DRESSING, RINSED AREAN WITH N/S. PATTED DRY. COVERED WITH DRAIN SPONGE AND 2 ABDOMINAL PADS SECURED WITH SILK TAPE. PT TOLERATED PROCEDURE WELL. CALL LIGHT WITHIN REACH. BED IN LOWEST POSITION.
[2020-01-31 15:57] VITALS: BP 142/98
--- NOTE | 2020-01-31 18:35 | NUR ---
PT IS SITTING UP AT BEDSIDE, RESP EVEN AND UNLABORED. NO DISTRESS NOTED. ABDOMINAL BINDER IN PLACE. IV CATH TO LFA 20G INTACT, SITE WNL. COVERED WITH CDI DRESSING. PT DENIES PAIN AND DISCOMFORT. CALL LIGHT WITHIN REACH. BED IN LOWEST POSITION.
--- NOTE | 2020-01-31 19:30 | NUR ---
RECEIVED PT FROM DAY SHIFT RN. PATIENT AAOX4, DENIES MELENDEZ/DIZZINESS. BREATHING EVEN AND UNLABORED ON RA WITH NO SOB NOTED. MED SURG PATIENT, DENIES CHEST PAIN/PRESSURE. ABD SOFT/ROUND/DIST, ACTIVE BOWEL SOUNDS. ABD INCISION COVERED WITH DRESSING, CDI. SEPIDEH DRAIN X1. ABD BINDER IN PLACE. PATIENT AMBULATORY WITH BRP. IV LFA PATENT, SL. NO ACUTE DISTRESS NOTED. CALL BUTTON WITHIN REACH. SAFETY PRECAUTIONS IN PLACE. WILL CONTINUE TO MONITOR.
[2020-01-31 20:17] VITALS: BP 132/84
--- NOTE | 2020-02-01 02:00 | NUR ---
PATIENT RESTING, BREATHING EVEN AND UNLABORED ON RA WITH NO SOB NOTED. SAFETY PRECAUTIONS IN PLACE. WILL CONTINUE TO MONITOR.
--- NOTE | 2020-02-01 05:18 | NUR ---
PATIENT SLEPT MOST OF THE NIGHT WITH NO ACUTE DISTRESS NOTED. BREATHING EVEN AND UNLABORED ON RA WITH NO SOB NOTED. ABD DRESSING CDI. SEPIDEH DRAIN IN PLACE WITH PURULENT COLOR OUTPUT. DENIES PAIN. PT AMBULATORY. PT CONTINUE TO REPORT HAVING DIARRHEA X2 DURING THE NIGHT. IV PATENT, SL. MEDICATED PER EMAR. CALL BUTTON WITHIN REACH. SAFETY PRECAUTIONS IN PLACE. WILL CONTINUE TO MONITOR AND ENDORSE CARE TO DAY SHIFT RN.
[2020-02-01 05:21] VITALS: BP 119/86
[2020-02-01 06:40] LABS: CALCIUM 9.5 mg/dL (8.5-10.1); CHLORIDE SERUM 102 mmol/L (98-107); CREATININE SERUM 0.8 mg/dL (0.7-1.3); GFR1 > 60 mL/min; GLUCOSE SERUM 95 mg/dL (74-106); POTASSIUM SERUM 3.6 mmol/L (3.5-5.1); SODIUM SERUM 141 mmol/L (136-145)
--- NOTE | 2020-02-01 07:15 | NUR ---
PATIENT IN NO SIGNS OF DISTRESS. ENDORSED CARE TO DAY SHIFT RN, ALL QUESTIONS ADDRESSED.
[2020-02-01 07:25] LABS: RED CELL DISTRIBUTION WIDTH 14.4 % (11.5-14.5)
--- NOTE | 2020-02-01 07:38 | NUR ---
RECIEVED REPORT FROM [facility] NURSE. PATIENT CURRENTLY AWAKE ALERT AND ORIENTED. IV TO THE LEFT FOREARM CURRENTLY SALINE LOCKED. POST OP ABD INCISION CURRENTLY COVERED WITH DRESSING AND ABD BINDER. PATIENT REPORTS DIARRHEA. WILL HOLD ALL STOOL SOFTENERS AT THIS TIME. PATIENT REMAINS ON A FULL LIQUID DIET AND IS TOLERATING WELL. PATIENT IS CURRENTLY ABMULATORY AND TAKES REGULAR WALKS AROUND THE HALLWAY. CALL LIGHT WITHIN REACH. WILL CONTINUE TO PROVIDE CARE FOR PATIENT.
[2020-02-01 08:01] VITALS: BP 126/85
[2020-02-01 12:07] VITALS: BP 131/88
[2020-02-01 12:07] LABS: BAND NEUTROPHIL 13 % (0-10); MONOCYTE 7 % (0-7); SEGMENTED NEUTROPHILS 59 % (37-75)
[2020-02-01 12:08] LABS: METAMYELOCTE 2 % (0-2); MYELOCYTE 3 % (0-2)
[2020-02-01 12:09] LABS: rbc morphology (normal/abnorm) ABNORMAL (NORMAL)
[2020-02-01 12:11] LABS: PLATELET MORPHOLOGY GIANT PLATELET SEEN
[2020-02-01 12:16] LABS: PLATELET COUNT 693 x10^3mcL (130-400)
[2020-02-01 12:42] VITALS: BP 132/84
--- NOTE | 2020-02-01 15:03 | NUR ---
Follow-up Nutrition Assessment: 207A KIKE CHOWDHURY 39M HR FU Dx: Diverticulitis, Pneumoperitoneum PMHx: HTN, Hyperlipidemia Labs: (01/31) WBC 14.9H Meds: Colace, Flagyl, Levaquin, Lipitor, Norvasc PRN meds: [place], Tylenol, Zofran Diet: Mechanical Soft diet PO Intake: 40-75% x 5 meals with average PO intake of 53% (clear liquid and full liquid) Weights: (01/31)120.656kg *no significant change Edema: none noted Last BM: 01/30 Skin: not intact, incision to ABD Harry: [address] (01/26), pt had raptured sigmoid diverticulitis s/p exploratory lap low anterior resection sigmoidoscopy w/ william drain, sepsis. Pt was sitting on chair during bedside visit. Per pt, he did not have any GI distress, but he was trying to pass gas. Pt also denied chewing/swallowing difficulties and recent wt changes. Pt stated that his usual body weight was approximately 215-218lbs but not sure how long ago. Pt was talking zinc and vitamin D supplements for COVID-19 prevention per his friend's recommendation. RD Note (01/31): Per RN reassessment (01/30), pt reported having diarrhea during the day, and pt denied N/V/abd pain. Per progress note (01/31), pt had CT guided abscess drainage yesterday and sent to micro for culture. Pt was sitting on his chair on his computer during bedside visit. Per pt, he had fair appetite and it could be better. Pt reported that he had been drinking ensure, but he's looking forward to eating something solid. RD informed pt that pt's diet had been advanced to mechanical soft diet starting at lunch time. Pt reported diarrhea, but it could be caused by fluid diet. Reviewed low residue diet with pt, and pt acknowledged. Estimated Nutritional Needs Based on adjusted body weight (79kg) Energy: 6807-4342 kcal/day (20-22 kcal/kg for weight reduction) Protein: 79-94 g/day (1-1.2 g/kg for post-op) Fluid: 1020-3324 mL/day (25-30 mL/kg) Nutrition Diagnosis: (ongoing) 1. Altered GI function r/t pathophysiological cause a/e/b pt admitted with raptured diverticulitis s/p ex lap low anterior resection sigmoidoscopy and pt trying to pass gas. (ongoing) 2. Class III obesity r/t imbalance intake and output a/e/b pt BMI >40 (BMI = 42.9) and pt reported no physical activity. Intervention: 1. Recommend continue mechanical soft diet as tolerate Monitor/Evaluate: Goal: Have pt meet at least 75% of estimated needs (not met, ongoing) Monitor: PO intake, Labs, GI function, Body weight F/U in 3-5 days as moderate risk 02/03-
--- NOTE | 2020-02-01 15:03 | NUR ---
1. Recommend continue mechanical soft diet as tolerate
--- NOTE | 2020-02-01 15:52 | NUR ---
SPOKE WITH NURSE PRACTIONER REGARDING PATIENT'S ELEVATION IN PLATELETS. NO CHANGE IN ORDERS AT THIS TIME. PATIENT IS WALKING POST OP. WILL CONTINUE TO MONITOR PLT COUNT.
[2020-02-01 16:21] VITALS: BP 11/73
--- NOTE | 2020-02-01 17:52 | NUR ---
PATIENT CURRENTLY AWAKE ALERT AND ORIENTED. PATIENT'S DIET ADVANCED TODAY TO MECHANICAL SOFT. PATIENT IS HAVING SOME DIFFICULTY TOLERATING ADVANCEMENT IN DIET HE REPORTS MILD ABD PAIN. PATIENT WAS TREATED WITH ACETAMINOPHEN FOR PAIN PER EMAR AND AT PATIENT'S REQUST. PATIENT HAD ABD DRESSING CHANGE TODAY AND NEW PICTURES TAKEN OF SURGICAL INCISION SITE AND PLACED IN CHART. PATIENT CONTINUES TO REMAIN ON IV ANTIBIOTICS: FLAGYL AND LEVAQUIN. PATIENT RESOLUTION OF HIS DIARRHEA. CONTINUE WITH CURRENT TREATMENT PLAN. WILL ENDORSE ALL FURTHER CARE TO THE NOC NURSE.
--- NOTE | 2020-02-01 18:21 | NUR ---
13cc DRAINED FROM SEPIDEH DRAIN. DRAINAGE YELLOW IN COLOR.
[2020-02-01 19:59] VITALS: BP 118/77
--- NOTE | 2020-02-01 20:02 | NUR ---
PATIENT RECEIVED IN BED AWAKE,ALERT AND ORIENTED X4, SPEECH CLEAR. BREATHING EVEN AND UNLABORED BS CLEAR DIMINISHED BASES FOUND ON ROOM AIR SAT 97%,DENIED SON NO COUGH. DENIED CHEST PAINS, NON TELE PATIENT, HR=92BPM. 01/26/20 S/P EXP. LAP SIGMOIDECTOMY W/ SEPIDEH, DRESSING CDI,ABDOMINAL BINDER IN USE, PATIENT PASSING GAS AND DID HAVE LOOSE BRONW BM TODAY, STARTED ON [facility] SOFT DIET AND PATIENT STILL HAVE POOR APPETITE, DENIED N/V THIS TIME. ABDOMEN TENDER TO TOUCH, CASEY TO INCISION INTACT. SEPIDEH INTACT, BULB COMPRESSED FOR SUCTION. VOIDING FREELY. PATIENT AMBULATING INSIDE AND OUTSIDE ROOM. PATIENT EDUCATED PAIN MANAGEMENT. ALL QUESTIONS AND CONCERNS ADDRESSED. SAFETY PRECAUTIONS OBSERVED AND MAINTAINED. WILL CONTINUE TO MONITOR.
--- NOTE | 2020-02-01 20:45 | NUR ---
SCHEDULED MEDS ADMINISTERED,PATIENT INFORMED ABOUT EACH MEDS ACTIONS AND PURPOSE PRIOR. PATIENT ALSO COMPLAINT OF ABDOMINAL SURGICAL INCISIONAL PAIN RATED AT 7/10 THROBBING, MEDICATED PRN. WILL MONITOR EFFECTIVENESS.
--- NOTE | 2020-02-01 21:45 | NUR ---
CHECKED PATIENT SLEEPING EASILY AWAKEN WHEN NAME CALLED, RE-ASSESSED EFFECTIVENESS OF PAIN MEDS STATED DESIRED RELIEF AT 3/10.
--- NOTE | 2020-02-02 | NUR ---
PATIENT RESTING COMFORTABLY THIS TIME, AWAKEN WHEN NAME CALLED.SAFETY PRECAUTIONS MAINTAINED. WILL CONTINUE TO MONITOR..
[2020-02-02 05:27] VITALS: BP 124/80
--- NOTE | 2020-02-02 06:29 | NUR ---
PATIENT HAD A RESTFUL , COMFORTABLE QUIET NIGHT, WAS MEDICATED X1 WITH NORCO AND RECEIVED DESIRED PAIN GOAL. DRESSING TO ABDOMEN CDI. SEPIDEH TO RQUAD DRAINED YELLOW FLUID WITH BLOOD TINGED. AMBULATORY WITH STEADY GAIT. SAFETY PRECAUTIONS MAINTAINED. WILL ENDORSE CONTINUITY OF CARE TO INCOMING NURSE.
[2020-02-02 06:38] LABS: CALCIUM 8.9 mg/dL (8.5-10.1); CARBON DIOXIDE 29.3 mmol/L (21-32); CHLORIDE SERUM 103 mmol/L (98-107); CREATININE SERUM 0.8 mg/dL (0.7-1.3); GFR1 > 60 mL/min; GLUCOSE SERUM 94 mg/dL (74-106); POTASSIUM SERUM 3.8 mmol/L (3.5-5.1); SODIUM SERUM 140 mmol/L (136-145)
--- NOTE | 2020-02-02 07:10 | NUR ---
RECEIVED PT FROM MIGUEL ANGEL WILLSON. PT AWAKE AOX4. PT ON RA. NO SOB OR DISTRESS. DENIES CHEST PAIN. IV LFA. HEP LOCKED. DRESSING CDI. PT DENIES PAIN AT THIS TIME. ALL SAFETY AND COMFORT MEASURES IN PLACE. BED IN LOW POSITION, 2 SIDE RAILS UP, CALL LIGHT WITH IN REACH. ALL QUESTIONS AND CONCERNS ADRESSED. WILL CONTINUE TO MONITOR PT.
--- NOTE | 2020-02-02 07:37 | NUR ---
BEDSIDE HANDS OFF REPORT AND INTRODUCTION PERFORMED WITH INCOMING NURSE TITUS-RN.
[2020-02-02 08:14] VITALS: BP 134/87
[2020-02-02 08:45] LABS: PLATELET COUNT 736 x10^3mcL (130-400); RED CELL DISTRIBUTION WIDTH 14.6 % (11.5-14.5)
[2020-02-02] MEDS ORDERED: FLA500 PO (10:06)
[2020-02-02] MEDS ORDERED: LEVAQUIN750 MG PO (10:06)
[2020-02-02] MEDS ORDERED: LIPI20 PO (10:07)
[2020-02-02] MEDS ORDERED: NOR5 PO (10:07)
[2020-02-02] MEDS ORDERED: METOPROLOL SUCC25 M2 PO (10:07)
[2020-02-02] MEDS ORDERED: ACETAMINOPHEN-H1 TA1 PO (10:08)
--- NOTE | 2020-02-02 12:00 | NUR ---
RECEIVED CALL FROM DR BOTELLO. DR BOTELLO STATED TO CHANGE ABD SURGICAL INCISION DRESSING WITH 4X4 GUAZE AND TAPE. ALL QUESTIONS AND CONCERNS ADDRESSED. ALL NEEDS MET AT THIS TIME. WILL CONTINUE TO MONITOR PT.
[2020-02-02 12:10] LABS: ATYPICAL LYMPH 1 %; BAND NEUTROPHIL 0 % (0-10); MONOCYTE 31 % (0-7); SEGMENTED NEUTROPHILS 50 % (37-75)
[2020-02-02 12:11] LABS: PLATELET MORPHOLOGY PLATELETS DECREASED; rbc morphology (normal/abnorm) ABNORMAL (NORMAL)
[2020-02-02 13:33] VITALS: BP 126/83
[2020-02-02 14:59] VITALS: BP 126/83
[2020-02-02 15:05] VITALS: BP 126/83
--- NOTE | 2020-02-02 17:00 | NUR ---
IN TO ASSESS PT AND PROVIDE DC ORDER. DRESSING CHANGE DONE. DRESSING CDI. 4X4 APPLIED. GTUBE DRAINED, 5CC OUTPUT. CLEAR YELLOW DRAINAGE. NO REDNESS OR IRRITATION TO SITES. PICTURES TAKEN AND ARE IN CHART. D/C INSTRUCTIONS PROVIDED. PACKET GIVEN TO PT AND PRESCRIPTIONS SENT WITH PT. ID BANDS REMOVED. IV REMOVED W/ CATHETER INTACT. DRESSING APPLIED. ADVISED PT TO HAVE SOMEONE PICK THEM UP. PT STATED FATHER WOULD PICK HIM UP. ALL QUESTIONS AND CONCERNS ADDRESSED. ALL NEEDS MET AT THIS TIME. WILL CONTINUE TO MONITOR PT.
[2020-02-02 17:25] VITALS: BP 128/97
--- NOTE | 2020-02-02 17:30 | NUR ---
PT DC IN STABLE CONDITION. PT ESCORTED BY SUPERVISOR ELECTRIC VIA WHEELCHAIR. ALL BELONGING SENT HOME W/ PT UPON DISCHARGE. ALL QUESTIONS AND CONCERNS ADDRESSED.
== END 2020-02-02 18:23 | disposition home or self-care (01) | DRG 854 ==
LOC: ED 07:31 → MU 09:22
PROVIDERS: Emergency Medicine; Family Medicine; Student in an Organized Health Care Education/Training Program; Surgery; ADMIT Internal Medicine
PROC: 0DBN0ZZ Excision of Sigmoid Colon, Open Approach (ICD-10-PCS; principal; 2020-01-26 12:30)
PROC: 0F913ZZ Drainage of Right Lobe Liver, Percutaneous Approach (ICD-10-PCS; 2020-01-31)
DX: A41.9 Sepsis, unspecified organism (principal); K57.20 Diverticulitis of large intestine with perforation and abscess without bleeding; K37 Unspecified appendicitis; E87.6 Hypokalemia; I10 Essential (primary) hypertension; E66.9 Obesity, unspecified; Z71.3 Dietary counseling and surveillance; E78.5 Hyperlipidemia, unspecified; K66.8 Other specified disorders of peritoneum
CPT/HCPCS: 82962; G0378; J0330; J0690; J1170; J1885; J1956; J2001; J2250; J2270; J2405; J2543; J2704; J2710; J3480; J3490; J7030; J7040; J7120; Q0092; Q9967

== ENCOUNTER 2020-02-14 20:44 | Emergency (ER) | payer OTHER ==
[~2020-02-14] VITALS: Ht 167.6 cm; Wt 92.1 kg
[~2020-02-14 20:44] MED LIST: ACETAMINOPHEN-H1 TA1 PO; AMLODIPINE-OLM1 EAC1 PO; AZOR 10-20 MG1 EACH PO; FLA500 PO; LEVAQUIN750 MG PO; LIPI20 PO; METOPROLOL SUCC25 M2 PO; NOR5 PO; TOPROL XL25 MG PO; TRIGLIDE160 M1 PO
[2020-02-14 20:54] VITALS: Ht 167.6 cm; Wt 92.1 kg
[2020-02-14 21:28] LABS: BASOPHIL % 0.1 % (0-2); PLATELET COUNT 366 x10^3mcL (130-400); RED CELL DISTRIBUTION WIDTH 13.9 % (11.5-14.5)
[2020-02-14 21:42] LABS: CALCIUM 8.6 mg/dL (8.5-10.1); CARBON DIOXIDE 29.1 mmol/L (21-32); CHLORIDE SERUM 104 mmol/L (98-107); GFR1 > 60 mL/min; GLUCOSE SERUM 139 mg/dL (74-106); POTASSIUM SERUM 3.6 mmol/L (3.5-5.1); SODIUM SERUM 140 mmol/L (136-145)
[2020-02-14 21:46] LABS: ALKALINE PHOSPHATASE 80 U/L (46-116); ALT/SGPT 42 U/L (16-63); AMYLASE 46 U/L (25-115); AST/SGOT 25 U/L (15-37); BILIRUBIN TOTAL 0.34 mg/dL (0.20-1.00); LIPASE 144 IU/L (73-393)
[2020-02-14 21:53] LABS: ALBUMIN 3.2 g/dL (3.4-5.0)
[2020-02-15 00:23] VITALS: BP 132/96
== END 2020-02-15 00:23 | disposition home or self-care (01) ==
LOC: ED 20:44
PROVIDERS: Emergency Medicine
DX: T81.40XA Infection following a procedure, unspecified, initial encounter (principal); Y92.89 Other specified places as the place of occurrence of the external cause; Y99.8 Other external cause status
CPT/HCPCS: J2270; J7030; Q9967